=== PATIENT | male | born 1990 | race Caucasian/White ===

== ENCOUNTER 2023-12-19 10:29 | Outpatient (AMB) | payer BC, SELFPAY ==
--- NOTE | 2023-12-19 09:41 | A.OFFPC_ITS ---
Vital Signs 12/19/23 10:39 Height 5 ft 7.13 in Weight 167 lb 3 oz BMI 26.1 BP 102/70 Blood Pressure Location Rt brachial Position Sitting Respiration 14 Pulse 88 Pulse Source Pulse Oximeter Pulse Oximetry (%) 99 Oxygen Delivery Method Room Air Intake Visit Reasons: PANTRY STEWARD/STEWARDESS-PE request Intake Note: New patient visit Inside Sales Engineer Required: No Accompanied by: Spouse Allergies No Known Allergies Allergy (Verified 12/19/23 10:35) Medication List - Last Reconciled 12/19/23 by Deepika Sterling PA-C lisdexamfetamine 40 mg PO DAILY magnesium oxide 500 mg PO DAILY venlafaxine ER 225 mg PO DAILY Tobacco use date assessed: 12/19/23 Dental Screening Dental Screen Date: 12/19/23 Did you have a dental visit in the last 12 months?: Yes Did you have a dental problem in the last 6 months where you did not have access to dental care?: No Was dental information given to patient?: Patient has dentist HPI PANTRY STEWARD/STEWARDESS-PE request HPI Details Pt is a 33 y/o male who presents today to [facility] care. He is accompanied today by his significant other. He has a hx of ADD, depression, anxiety. He states he mostly made this appointment because he just wanted to have a PCP listed. He was last seen at [facility] a few years ago. Psych: Follows with growth therapy online and is on Vyvanse and venlafaxine. No SI/HI. Feeling well with this. Has a med prescriber. Derm: right foot plantar wart for the last month. Would like to see someone about removal of this. Has tried [id number] regimens without improvement.. 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 States that he is very active. [facility] Medical History (Updated 12/19/23 @ 11:04 by Deepika Sterling PA-C) Subacromial impingement of left shoulder Mass of right chest wall Hepatic steatosis Heartburn symptom Depression, major, recurrent, mild Decreased libido Chest wall contusion Low back pain Anxiety Allergic rhinitis ADHD (attention deficit hyperactivity disorder) Surgical History (Updated 12/19/23 @ 11:01 by Deepika Sterling PA-C) [place] teeth extracted History of arthroscopic procedure on shoulder H/O esophagogastroduodenoscopy Family History (Updated 12/19/23 @ 10:38 by Crystal Melloni, VERTICAL CONTOUR BAND SAW OPERATOR) Mother Depression Other FH: mental illness Social History Housing: House Patient Tobacco Use Status: Former Tobacco user Cigarette Packs Per Day: 0.5 Years Smoked: 2 e-Cigarette/Vaping Use: Former Use Second Hand Smoke Exposure: No service: No Current occupational status: employed Current occupation: [employer] Current occupational exposures/hazards: No Cognitive needs: No Hearing needs: No Vision needs: No Questionnaire Thrive Questionnaire Date Thrive assessed: 12/16/23 I am a: Patient What is your living situation today?: I have a steady place to live Within the past 12 months, did the food you bought not last and you didn't have the money to get more?: Never true Within the past 12 months, did you worry whether your food would run out before you got money to buy more?: Never true Do you have trouble paying for medicines?: No Do you have trouble getting transportation to medical appointments?: No Do you have trouble paying your heating and electricity bill?: No Do you have trouble taking care of your child, family member or friend?: No Do you have trouble with day-to-day activities such as bathing, preparing meals, shopping, managing finances, etc.?: No Are you currently unemployed and looking for a job?: No Are you interested in more education?: No Please select the resources that you would like help with: None Currently or been in a relationship where the following occur: No concerns reported THRIVE Score: 0 AUDIT C Alcohol Use Questionnaire (AUDIT-C) 1. How often do you have a drink containing alcohol?: 2-4 times a month 2. How many drinks containing alcohol do you have on a typical day when you are drinking?: 3 or 4 3. How often do you have six or more drinks on one occasion?: Monthly Total Score: 5 EMELY-7 AMB Questionnaire EMELY-7 Feeling nervous, anxious, or on edge: 1 = Several days Not being able to stop or control worryin = Not at all Worrying too much about different things: 1 = Several days Trouble relaxin = Several days Being so restless that it is hard to sit still: 1 = Several days Feeling afraid as if something awful might happen: 0 = Not at all Source: Developed by Drs. Foreign Harrell, Bernie Enrique, Jesús Anderson and colleagues, with an educational shahida from [employer]. Physical exam (Primary Care) Thrive Assessment: Date of Thrive Assessment Date Thrive assessed 12/16/23 12/19/23 09:44 Currently or been in a relationship where the following occur: No concerns reported Const Orientation/consciousness: patient oriented x3 HENMT Ears: hearing grossly normal bilaterally and TM's normal bilaterally General nose exam: No nasal polyps present Face and sinus: Yes sinuses nontender Mouth: Normal oral and palatal mucosa present Eyes Pupils: Equal, round and reactive pupils present EOM: EOMs intact bilaterally Neck Neck: Yes full ROM and Yes no lymphadenopathy Thyroid: Thyroid normal Chest Chest palpation & inspection: normal inspection of the chest Resp Auscultation: clear to auscultation bilaterally Cardio Rate: regular rate Rhythm: regular rhythm Heart sounds: S1 normal heart sound present and S2 normal heart sound present Peripheral pulses: Peripheral pulses 2+ throughout GI Other: Soft, nontender Auscultation: normal bowel sounds Rectal Exam - Male: Yes deferred General: Yes no CVA tenderness Back/Spine/Pelvis Other: Nontender Back: no CVA tenderness Skin General skin exam: no rashes or lesions noted Neuro General: patient oriented x3, gait normal, CN's II-XI intact bilaterally and deep tendon reflexes 2+ bilaterally Cranial nerves: Yes Equal, round and reactive pupils present Motor exam (neuro): 5/5 motor strength present throughout Sensory Exam: double simultaneous stimulation for sensation normal Coordination: [id number] test normal and Romberg test negative Extrem General: Yes normal to inspection and Yes full ROM Psych Affect: normal affect Attitude: cooperative Thought process: Normal thought process present Thought content: Normal thought content present Insight: Good insight present (Psych) Judgement: Good judgement present (Psych) Coding Level of Care Code Est Pt Prev Care 18-39y(87028) Diagnoses Routine general medical examination at a health care facility Z00.00 ADHD (attention deficit hyperactivity disorder) F90.9 Depression, major, recurrent, mild F33.0 Generalized anxiety disorder F41.1 Plantar wart of right foot B07.0 Assessment & Plan Assessment & Plan (1) Routine general medical examination at a health care facility: Code(s): Z00.00 - Encounter for general adult medical examination without abnormal findings Plan: Health maintenance reviewed. Labs ordered today. We will follow up pending test results. (2) ADHD (attention deficit hyperactivity disorder): Code(s): F90.9 - Attention-deficit hyperactivity disorder, unspecified type Category: Medical Plan: On Vyvanse. Appetite and mood stable. (3) Depression, major, recurrent, mild: Code(s): F33.0 - Major depressive disorder, recurrent, mild Category: Medical Plan: On Effexor and doing well. No SI/HI. (4) Generalized anxiety disorder: Code(s): F41.1 - Generalized anxiety disorder Category: Medical Plan: Continue with behavioral health. (5) Plantar wart of right foot: Code(s): B07.0 - Plantar wart Category: Medical Plan: Referral to [facility]. Orders: Orders Complete Blood Count Auto Diff Today F33.0 - Major depressive disorder, recurrent, mild, Z00.00 - Encounter for general adult medical examination without abnormal findings Lipid Panel Today F33.0 - Major depressive disorder, recurrent, mild, Z00.00 - Encounter for general adult medical examination without abnormal findings TSH reflex Free T4 Today F33.0 - Major depressive disorder, recurrent, mild, Z00.00 - Encounter for general adult medical examination without abnormal findings Vitamin B12 and Folate Today F33.0 - Major depressive disorder, recurrent, mild, Z00.00 - Encounter for general adult medical examination without abnormal findings Comprehensive Met. Panel Today F33.0 - Major depressive disorder, recurrent, mild, Z00.00 - Encounter for general adult medical examination without abnormal findings Referrals Dermatology Referral B07.0 - Plantar wart
[2023-12-19 10:39] VITALS: BP 102/70; PULSE 88; RESP 14; O2SAT 99; BMI 26.1
== END 2023-12-19 11:05 | disposition home or self-care (01) ==
PROVIDERS: PCP Family Medicine; Visit Provider Physician Assistant
DX: Z00.00 Encounter for general adult medical examination without abnormal findings (principal); F90.9 Attention-deficit hyperactivity disorder, unspecified type; F33.0 Major depressive disorder, recurrent, mild; F41.1 Generalized anxiety disorder; B07.0 Plantar wart

== ENCOUNTER → 2023-12-19 10:29 | Outpatient (BNVA) | payer BC, SELFPAY | PROVIDERS: PCP Family Medicine; Visit Provider Physician Assistant ==

== ENCOUNTER 2023-12-23 09:03 | Outpatient (REF) | payer BC, SELFPAY ==
[2023-12-23 11:11] LABS: MANUAL DIFF FLAG NO
[2023-12-23 11:31] LABS: Basophils Percent Auto 0.7 % (0-2); Eosinophils Absolute Auto 0.1 X10*3/uL (0.0-0.4); Eosinophils Percent Auto 1.8 % (0-4); Hematocrit 45.1 % (42.0-52.0); Hemoglobin 14.8 g/dl (14.0-18.0); Imm Gran Abs Auto 0.01 X10*3/uL (0.00-0.03); Imm Gran Pct Auto 0.2 % (0.0-0.4); Lymphocytes Absolute Auto 1.2 X10*3/uL (1.2-4.9); Lymphocytes Percent Auto 27.7 % (20-40); Mean Corpuscular HGB Conc 32.8 g/dl (31.0-36.0); Mean Corpuscular Hemoglobin 29.4 pg (27.0-33.0); Mean Corpuscular Volume 89.5 fL (80.0-98.0); Mean Platelet Volume 10.9 fL (9.4-12.4); Monocytes Absolute Auto 0.4 X10*3/uL (0.1-1.2); Monocytes Percent Auto 9.2 % (2-11); Neutrophils Absolute Auto 2.7 x10*3/uL (2.0-8.3); Neutrophils Percent Auto 60.4 % (45-73); Platelet Count 222 X10*3/uL (160-400); Red Blood Count 5.04 X10*6/uL (4.60-5.80); Red Cell Distribution Width 12.4 % (11.0-16.0); White Blood Count 4.5 X10*3/uL (4.8-10.8)
[2023-12-23 11:59] LABS: Alanine Aminotransferase 31 U/L (0-40); Albumin Level 4.6 g/dL (3.5-5.0); Alkaline Phosphatase 64 U/L (39-117); Anion Gap 10 (12-20); Aspartate Amino Transferase 31 U/L (5-37); Bilirubin Total 0.6 mg/dL (0.0-1.0); Blood Urea Nitrogen 12 mg/dL (9-16); Calcium 9.9 mg/dL (8.4-10.2); Carbon Dioxide 30 mmol/L (22-29); Chloride 102 mmol/L (96-108); Cholesterol 184 mg/dL (<200); Estimated Glomerular Filt Rate > 60; Glucose Random 102 mg/dL (60-115); HDL Cholesterol 47 mg/dL (>40); LDL Cholesterol Calculated 118 mg/dL (<100); Potassium 4.2 mmol/L (3.3-5.1); Sodium 138 mmol/L (135-145); Total Protein 7.4 g/dL (6.5-8.0); Triglycerides 95 mg/dL (<150)
[2023-12-23 12:02] LABS: TSH reflex Free T4 0.62 uIU/mL (0.32-4.0)
[2023-12-23 12:34] LABS: Folate 13.9 ng/mL (> or = 4.0); Vitamin B12 667 pg/mL (200-900)
== END 2023-12-23 09:04 | disposition home or self-care (01) ==
LOC: HO.WFDLDS 09:03
PROVIDERS: Visit Provider Physician Assistant
DX: Z00.00 Encounter for general adult medical examination without abnormal findings (principal); F33.0 Major depressive disorder, recurrent, mild
CPT/HCPCS: 36415; 80053; 80061; 82607; 82746; 84443; 85025

== ENCOUNTER 2024-06-25 15:19 | Outpatient (AMB) | payer BC, SELFPAY ==
--- NOTE | 2024-06-25 15:24 | MHC.PC.OV ---
Vital Signs 06/25/24 15:26 Height 5 ft 7.13 in Weight 174 lb 6 oz BMI 27.2 BP 100/74 Blood Pressure Location Lt brachial Position Sitting Respiration 14 Pulse 95 Pulse Source Pulse Oximeter Temp 98.7 F Temp Source Oral Pulse Oximetry (%) 97 Oxygen Delivery Method Room Air Intake Visit Reasons: Weakness , tired Intake Note: Weakness and fatigue. Started over the winter. Requesting work note to return on 06/27/2024. Province Archivist Required: No Allergies No Known Allergies Allergy (Verified 06/25/24 15:25) Medication List - Last Reconciled 06/25/24 by Deepika Sterling PA-C lisdexamfetamine 40 mg PO DAILY magnesium oxide 500 mg PO DAILY venlafaxine ER 225 mg PO DAILY Tobacco use date assessed: 06/25/24 Dental Screening Dental Screen Date: 12/19/23 HPI Weakness , tired HPI Details Pt is a 33 y/o male who presents today with concerns of feeling tired. He has a hx of ADD, depression, anxiety. He states he started feeling tired for the last few months. They do have a 3-month-old at home but does not necessarily think it is related. He just returned to work and states that it has been a hard adjustment. He works 3rd shift and states that if he does not take his Vyvanse it was hard to stay focused. He does notice that he is a little bit more short fused without the venlafaxine. He does have a psychiatrist. He states that the fatigue feels more than just winter changes or depression. He denies any swelling in the neck, decreased appetite, abdominal pain, blood in the stool or urine, weight changes. No night sweats, fevers or chills. No recent illness. States he is able to get a full night's sleep but then still feels tired. Psych: Follows with growth therapy online and is on Vyvanse and venlafaxine. No SI/HI. Feeling well with this. Has a med prescriber. 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 [facility] Medical History (Updated 06/25/24 @ 15:38 by Deepika Sterling PA-C) Subacromial impingement of left shoulder Mass of right chest wall Hepatic steatosis Heartburn symptom Depression, major, recurrent, mild Decreased libido Chest wall contusion Low back pain Anxiety Allergic rhinitis ADHD (attention deficit hyperactivity disorder) Surgical History (Updated 12/19/23 @ 11:01 by Deepika Sterling PA-C) [place] teeth extracted History of arthroscopic procedure on shoulder H/O esophagogastroduodenoscopy Family History (Updated 12/19/23 @ 10:38 by Hortencia Shah CMA) Mother Depression Other FH: mental illness Social History (Updated 12/19/23 @ 10:37 by Hortencia Shah CMA) Housing: House Patient Tobacco Use Status: Former Tobacco user Cigarette Packs Per Day: 0.5 Years Smoked: 2 e-Cigarette/Vaping Use: Former Use Second Hand Smoke Exposure: No service: No Current occupational status: employed Current occupation: [employer] Current occupational exposures/hazards: No Cognitive needs: No Hearing needs: No Vision needs: No Questionnaire PHQ-9 Over the last 2 weeks, how often have you been bothered by any of the following problems? 1. Little interest or pleasure in doing things: several days 2. Feeling down, depressed, or hopeless: several days 3. Trouble falling or staying asleep, or sleeping too much: not at all 4. Feeling tired or having little energy: nearly every day 5. Poor appetite or overeating: not at all 6. Feeling bad about yourself - or that you are a failure or have let yourself or your family down: not at all 7. Trouble concentrating on things, such as reading the newspaper or watching television: not at all 8. Moving or speaking so slowly that other people could have noticed. Or the opposite - being so fidgety or restless that you have been moving around a lot more than usual: not at all 9. Thoughts that you would be better off or of hurting yourself in some way: not at all Total score: 5 Depression Screening Interpretation: Positive Depression Screening Follow-up: Existing condition, In treatment and Community Mental Health Worker F/U Depression Screening Done: Yes 23986 - PHQ-9 Billing: Yes Source: Developed by Drs. Foreign Harrell, Bernie Enrique, Jesús Anderson and colleagues, with an educational shahida from [employer] Thrive Questionnaire Date Thrive assessed: 12/16/23 I am a: Patient What is your living situation today?: I have a steady place to live Within the past 12 months, did the food you bought not last and you didn't have the money to get more?: Never true Within the past 12 months, did you worry whether your food would run out before you got money to buy more?: Sometimes True Do you have trouble paying for medicines?: No Do you have trouble getting transportation to medical appointments?: No Do you have trouble paying your heating and electricity bill?: No Do you have trouble taking care of your child, family member or friend?: No Do you have trouble with day-to-day activities such as bathing, preparing meals, shopping, managing finances, etc.?: No Are you currently unemployed and looking for a job?: No Are you interested in more education?: No Please select the resources that you would like help with: None Currently or been in a relationship where the following occur: No concerns reported THRIVE Score: 1 AUDIT C Alcohol Use Questionnaire (AUDIT-C) 1. How often do you have a drink containing alcohol?: 2-4 times a month 2. How many drinks containing alcohol do you have on a typical day when you are drinking?: 3 or 4 3. How often do you have six or more drinks on one occasion?: Less than monthly Total Score: 4 EMELY-7 AMB Questionnaire EMELY-7 Feeling nervous, anxious, or on edge: 1 = Several days Not being able to stop or control worryin = Several days Worrying too much about different things: 1 = Several days Trouble relaxin = Several days Being so restless that it is hard to sit still: 1 = Several days Becoming easily annoyed or irritable: 1 = Several days Feeling afraid as if something awful might happen: 0 = Not at all Total EMELY-7 score (0-4 normal; 5-9 mild; 10-14 moderate; 15-21 severe): 6 Source: Developed by Drs. Foreign Harrell, Bernie Enrique, Jesús Anderson and colleagues, with an educational shahida from [employer]). EMELY-7 Assessment Billing EMELY-7 Assessment Tool: EMELY-7 Assessment 08419 Physical exam (Primary Care) Vital Signs: Last Vital Signs Temp 98.7 F 06/25/24 15:26 Pulse 95 06/25/24 15:26 Resp 14 06/25/24 15:26 BP 100/74 06/25/24 15:26 Pulse Ox 97 06/25/24 15:26 Oxygen Delivery Method Room Air 06/25/24 15:26 BMI result Body Mass Index 27.2 Tobacco/Smoking Status: Tobacco use Status Tobacco use date assessed 06/25/24 06/25/24 15:29 Patient Tobacco Use Status Former Tobacco user 06/25/24 15:29 e-Cigarette/Vaping Use Former Use 06/25/24 15:29 PHQ-9: PHQ-9 Score PHQ-9: Total score 5 06/25/24 15:29 Depression Screening Interpretation: Positive Depression Screening Follow-up: Existing condition, In treatment and Community Mental Health Worker F/U Thrive Assessment: Date of Thrive Assessment Date Thrive assessed 12/16/23 06/25/24 15:29 Currently or been in a relationship where the following occur: No concerns reported Const Orientation/consciousness: patient oriented x3 HENMT Ears: hearing grossly normal bilaterally Neck Thyroid: Thyroid normal Lymphatic: no lymphadenopathy noted Resp Auscultation: clear to auscultation bilaterally Cardio Rate: regular rate Rhythm: regular rhythm Heart sounds: S1 normal heart sound present and S2 normal heart sound present GI Inspection: Yes normal to inspection Palpation (GI): Soft to palpation and Other GI palpation findings present (nontender, no cva tenderness) Auscultation: normoactive bowel sounds Rectal Exam - Male: Yes deferred Skin General skin exam: no rashes or lesions noted Neuro General: patient oriented x3, gait normal and no focal motor deficits Coding Level of Care Code Est Pt Level 4 (30621) Complex EM visit Add On G2211 Diagnoses ADHD (attention deficit hyperactivity disorder) F90.9 Depression, major, recurrent, mild F33.0 Fatigue R53.83 Additional Codes PHQ-9 - 85457 - PHQ-9 Billing: Yes ([id number]) EMELY-7 Assessment Billing - EMELY-7 Assessment Tool: EMELY-7 Assessment 63963 ([id number]) Assessment & Plan Assessment & Plan (1) ADHD (attention deficit hyperactivity disorder): Code(s): F90.9 - Attention-deficit hyperactivity disorder, unspecified type Category: Medical Plan: Following with a med prescriber (2) Depression, major, recurrent, mild: Code(s): F33.0 - Major depressive disorder, recurrent, mild Category: Medical Plan: As above. No SI/HI. States doing well with the . (3) Fatigue: Code(s): R53.83 - Other fatigue Category: Medical Plan: Labs ordered today. We will follow up pending test results. Advised patient to also reach out to med prescriber to see if there should be a med adjustment. If still symptomatic discussed doing a follow up and possible sleep study. Patient will let me know. He will also let me know if anything changes. Patient understands and agrees with the plan. Orders: Orders Comprehensive Ora. Panel Fast Today F33.0 - Major depressive disorder, recurrent, mild, F41.1 - Generalized anxiety disorder, F90.9 - Attention-deficit hyperactivity disorder, unspecified type, R53.83 - Other fatigue IRON PROFILE Today F33.0 - Major depressive disorder, recurrent, mild, F41.1 - Generalized anxiety disorder, F90.9 - Attention-deficit hyperactivity disorder, unspecified type, R53.83 - Other fatigue TSH reflex Free T4 Today F33.0 - Major depressive disorder, recurrent, mild, F41.1 - Generalized anxiety disorder, F90.9 - Attention-deficit hyperactivity disorder, unspecified type, R53.83 - Other fatigue Vitamin D 25-OH Total Today F33.0 - Major depressive disorder, recurrent, mild, F41.1 - Generalized anxiety disorder, F90.9 - Attention-deficit hyperactivity disorder, unspecified type, R53.83 - Other fatigue Complete Blood Count Auto Diff Today F33.0 - Major depressive disorder, recurrent, mild, F41.1 - Generalized anxiety disorder, F90.9 - Attention-deficit hyperactivity disorder, unspecified type, R53.83 - Other fatigue Vitamin B12 and Folate Today F33.0 - Major depressive disorder, recurrent, mild, F41.1 - Generalized anxiety disorder, F90.9 - Attention-deficit hyperactivity disorder, unspecified type, R53.83 - Other fatigue
[2024-06-25 15:26] VITALS: BP 100/74; PULSE 95; RESP 14; TEMP 37.1; O2SAT 97; BMI 27.2
--- OUTSIDE RECORDS SUMMARY | 2024-06-25 17:42 | XMS_ITS | Clinical Summary ---
Author Organization [facility] ity Address [address] [place] [address] Care Team Providers Care Revenue Enforcement Agent Name Role Phone Unavailable Primary Care Provider Unavailabl e Social History Tobacco Use Types Packs/Day Years Used Date Smoking Tobacco: Never Assessed Sex and Gender Information Value Date Recorded Sex Assigned at Not on file Legal Sex Male 1:38 AM EST Gender Identity Not on file Sexual Orientation Not on file Plan of Treatment Health Maintenance Due Date Last Done Comments DTaP,Tdap,and Td Vaccines (1 - Tdap) 2008 Hepatitis B Vaccines (1 of 3 - 19+ 3-dose series) 2008 COVID-19 Vaccine ( - 2023-2 5 season) 2023 Influenza Vaccine (Season Ended) 2024 HIB Vaccines Aged Out No longer eligi ble based on patient's age to complete this topic HPV Vaccines Aged Out No longer eligi ble based on patient's age to complete this topic Hepatitis A Vaccines Aged Out No long er eligible based on patient's age to complete this topic IPV Vaccines Aged Out No longer eligi ble based on patient's age to complete this topic MMR Vaccines Aged Out No longer eligi ble based on patient's age to complete this topic Meningococcal ACWY Vaccine Aged Out N o longer eligible based on patient's age to complete this topic Meningococcal B Vaccine Aged Out No l onger eligible based on patient's age to complete this topic Pneumococcal Vaccine: Pediat rics (0 to 5 Years) and At-Risk Patients (6 to 64 Years) Aged Out No longer eligible b ased on patient's age to complete this topic RSV Immunization Patients Un amparo 20 months Aged Out No longer eligible b ased on patient's age to complete this topic Varicella Vaccines Aged Out No longer eligible based on patient's age to complete this topic
== END 2024-06-25 15:50 | disposition home or self-care (01) ==
LOC: HO.HMCFM 15:20
PROVIDERS: PCP Family Medicine; Visit Provider Physician Assistant
DX: F90.9 Attention-deficit hyperactivity disorder, unspecified type (principal); F33.0 Major depressive disorder, recurrent, mild; R53.83 Other fatigue

== ENCOUNTER → 2024-06-25 15:19 | Outpatient (BNVA) | payer BC, SELFPAY | PROVIDERS: PCP Family Medicine; Visit Provider Physician Assistant | DX: F90.9 Attention-deficit hyperactivity disorder, unspecified type (principal); F33.0 Major depressive disorder, recurrent, mild; R53.83 Other fatigue; F41.9 Anxiety disorder, unspecified | CPT/HCPCS: 96127 ==

== ENCOUNTER 2024-06-26 10:09 | Outpatient (REF) | payer BC, SELFPAY ==
--- OUTSIDE RECORDS SUMMARY | 2024-06-26 10:52 | XMS_ITS | Clinical Summary ---
Author Organization [facility] ity Address [address] [place] [address] Care Team Providers Care Utility Bill Collector Name Role Phone Unavailable Primary Care Provider [...]
[2024-06-26 11:38] LABS: MANUAL DIFF FLAG NO
[2024-06-26 11:40] LABS: Basophils Percent Auto 0.6 % (0-2); Eosinophils Absolute Auto 0.1 X10*3/uL (0.0-0.4); Eosinophils Percent Auto 1.3 % (0-4); Hematocrit 43.4 % (42.0-52.0); Hemoglobin 14.7 g/dl (14.0-18.0); Imm Gran Abs Auto 0.01 X10*3/uL (0.00-0.03); Imm Gran Pct Auto 0.2 % (0.0-0.4); Lymphocytes Absolute Auto 1.5 X10*3/uL (1.2-4.9); Lymphocytes Percent Auto 32.3 % (20-40); Mean Corpuscular HGB Conc 33.9 g/dl (31.0-36.0); Mean Corpuscular Hemoglobin 30.2 pg (27.0-33.0); Mean Corpuscular Volume 89.3 fL (80.0-98.0); Mean Platelet Volume 10.5 fL (9.4-12.4); Monocytes Absolute Auto 0.4 X10*3/uL (0.1-1.2); Monocytes Percent Auto 8.6 % (2-11); Neutrophils Absolute Auto 2.7 x10*3/uL (2.0-8.3); Platelet Count 231 X10*3/uL (160-400); Red Blood Count 4.86 X10*6/uL (4.60-5.80); Red Cell Distribution Width 12.5 % (11.0-16.0); White Blood Count 4.7 X10*3/uL (4.8-10.8)
[2024-06-26 12:07] LABS: Alanine Aminotransferase 37 U/L (0-40); Albumin Level 4.5 g/dL (3.5-5.0); Alkaline Phosphatase 62 U/L (39-117); Anion Gap 10 (12-20); Aspartate Amino Transferase 38 U/L (5-37); Bilirubin Total 0.4 mg/dL (0.0-1.0); Blood Urea Nitrogen 15 mg/dL (9-16); Calcium 9.4 mg/dL (8.4-10.2); Carbon Dioxide 31 mmol/L (22-29); Chloride 104 mmol/L (96-108); Estimated Glomerular Filt Rate > 60; Glucose Fasting 82 mg/dL (60-99); Iron 77 mcg/dL (45-160); Percent Iron Saturation 24 % (15-50); Potassium 4.5 mmol/L (3.3-5.1); Sodium 140 mmol/L (135-145); Total Iron Binding Capacity 315 mcg/dL (228-428); Total Protein 7.1 g/dL (6.5-8.0); Unsaturated Iron Binding 238 ug/dL
[2024-06-26 12:18] LABS: Vitamin D 25-OH Total 26.9 ng/mL (>30)
[2024-06-26 12:31] LABS: Folate 13.3 ng/mL (> or = 4.0); Vitamin B12 650 pg/mL (200-900)
[2024-06-26 13:02] LABS: Free T4 (Free Thyroxine) 0.98 ng/dL (0.71-1.85)
== END 2024-06-26 10:10 | disposition home or self-care (01) ==
LOC: HO.WFDLDS 10:09
PROVIDERS: Visit Provider Physician Assistant
DX: F90.9 Attention-deficit hyperactivity disorder, unspecified type (principal); F33.0 Major depressive disorder, recurrent, mild; R53.83 Other fatigue; F41.1 Generalized anxiety disorder
CPT/HCPCS: 36415; 80053; 82306; 82607; 82746; 83540; 84439; 84443; 85025

== ENCOUNTER 2024-08-13 13:45 | Outpatient (AMB) | payer BC, SELFPAY ==
--- NOTE | 2024-08-13 13:50 | A.OFFPC_ITS ---
Vital Signs 08/13/24 13:53 Height 5 ft 7.13 in Weight 166 lb 6 oz BMI 26.0 BP 122/72 Blood Pressure Location Lt brachial Position Sitting Respiration 14 Pulse 90 Pulse Source Pulse Oximeter Pulse Oximetry (%) 97 Oxygen Delivery Method Room Air Intake Visit Reasons: L knee pain Intake Note: Left knee pain, fell yesterday tripping on the dog Neuropsychology Division Chief Required: No Allergies No Known Allergies Allergy (Verified 06/25/24 15:25) Medication List - Last Reconciled 08/13/24 by Deepika Sterling PA-C cholecalciferol (vitamin D3) 25 mcg PO DAILY lisdexamfetamine 40 mg PO DAILY magnesium oxide 500 mg PO DAILY venlafaxine ER 225 mg PO DAILY Tobacco use date assessed: 08/13/24 Dental Screening Dental Screen Date: 08/13/24 Did you have a dental visit in the last 12 months?: Yes Did you have a dental problem in the last 6 months where you did not have access to dental care?: No Was dental information given to patient?: Patient has dentist HPI L knee pain HPI Details Patient is a 33-year-old male who presents today with complaints of left knee pain. He states that yesterday he was holding his 4-month-old when he tripped over his dog. He states that he did not realize his dog was directly under his feet and he tried to catch himself from falling while holding onto the baby. He states that he twisted and landed on the left knee and hip. His hip is a little sore but he states overall not painful. Most of his discomfort is on the lateral aspect of the left knee. He states that it does hurt to weight bear. He does feel like it is a little unstable but he has not really tried walking much. He reports some bruising and swelling of the knee. He has been trying to rest the knee. He does do a lot of walking, lifting and jogging for his job. Was seen recently for fatigue and we did discuss that his LFTs and thyroid tests were a little off. Reminded him to complete labs. [facility] Medical History (Updated 08/13/24 @ 14:27 by Deepika Sterling PA-C) Subacromial impingement of left shoulder Mass of right chest wall Hepatic steatosis Heartburn symptom Depression, major, recurrent, mild Decreased libido Chest wall contusion Low back pain Anxiety Allergic rhinitis ADHD (attention deficit hyperactivity disorder) Surgical History (Updated 12/19/23 @ 11:01 by Deepika Sterling PA-C) [place] teeth extracted History of arthroscopic procedure on shoulder H/O esophagogastroduodenoscopy Family History (Updated 12/19/23 @ 10:38 by Hortencia Shah CMA) Mother Depression Other FH: mental illness Social History (Updated 12/19/23 @ 10:37 by Hortencia Shah CMA) Housing: House Patient Tobacco Use Status: Former Tobacco user Cigarette Packs Per Day: 0.5 Years Smoked: 2 Packs Per Year: 1 e-Cigarette/Vaping Use: Former Use Second Hand Smoke Exposure: No service: No Current occupational status: employed Current occupation: [employer] Current occupational exposures/hazards: No Cognitive needs: No Hearing needs: No Vision needs: No Questionnaire Thrive Questionnaire Date Thrive assessed: 06/25/24 I am a: Patient What is your living situation today?: I have a steady place to live Within the past 12 months, did the food you bought not last and you didn't have the money to get more?: Never true Within the past 12 months, did you worry whether your food would run out before you got money to buy more?: Sometimes True Do you have trouble paying for medicines?: No Do you have trouble getting transportation to medical appointments?: No Do you have trouble paying your heating and electricity bill?: No Do you have trouble taking care of your child, family member or friend?: No Do you have trouble with day-to-day activities such as bathing, preparing meals, shopping, managing finances, etc.?: No Are you currently unemployed and looking for a job?: No Are you interested in more education?: No Please select the resources that you would like help with: None Currently or been in a relationship where the following occur: No concerns reported THRIVE Score: 1 AUDIT C Alcohol Use Questionnaire (AUDIT-C) 1. How often do you have a drink containing alcohol?: 2-4 times a month 2. How many drinks containing alcohol do you have on a typical day when you are drinking?: 1 or 2 3. How often do you have six or more drinks on one occasion?: Never Total Score: 2 Physical exam (Primary Care) Vital Signs: Last Vital Signs Pulse 90 08/13/24 13:53 Resp 14 08/13/24 13:53 BP 122/72 08/13/24 13:53 Pulse Ox 97 08/13/24 13:53 Oxygen Delivery Method Room Air 08/13/24 13:53 BMI result Body Mass Index 26.0 Tobacco/Smoking Status: Tobacco use Status Tobacco use date assessed 08/13/24 08/13/24 13:56 Patient Tobacco Use Status Former Tobacco user 08/13/24 13:56 e-Cigarette/Vaping Use Former Use 08/13/24 13:56 Thrive Assessment: Date of Thrive Assessment Date Thrive assessed 06/25/24 08/13/24 13:56 Currently or been in a relationship where the following occur: No concerns reported Const Orientation/consciousness: patient oriented x3 HENMT Ears: hearing grossly normal bilaterally Neck Thyroid: Thyroid normal Lymphatic: no lymphadenopathy noted Resp Auscultation: clear to auscultation bilaterally Cardio Rate: regular rate Rhythm: regular rhythm Heart sounds: S1 normal heart sound present and S2 normal heart sound present GI Inspection: Yes normal to inspection Palpation (GI): Soft to palpation and Other GI palpation findings present (nontender, no cva tenderness) Auscultation: normoactive bowel sounds Rectal Exam - Male: Yes deferred Neuro General: patient oriented x3, gait normal and no focal motor deficits Extrem Other: Full range of motion at the knee. There is soft tissue swelling noted over the lateral aspect of the left knee. Slight ecchymosis is also noted. Complete ext ension of the knee elicits pain. No discomfort with flexion. Valgus and varus stress elicits pain. Negative anterior and posterior drawer test. There is tenderness over the lateral aspect of the knee. Otherwise, nontender. Coding Level of Care Code Est Pt Level 4 (61307) Complex EM visit Add On G2211 Diagnoses Right knee pain M25.561 Low TSH level R79.89 Elevated LFTs R79.89 Assessment & Plan Assessment & Plan (1) Right knee pain: Code(s): M25.561 - Pain in right knee Category: Medical Plan: Referral to ortho X-ray ordered Encouraged rest, ice, compression and elevation. We will trial naproxen. Discussed risks and benefits and adverse effects of this medication. Work note provided. Follow up if no improvement or if anything worsens or changes. (2) Low TSH level: Code(s): R79.89 - Other specified abnormal findings of blood chemistry Plan: repeat lab (3) Elevated LFTs: Code(s): R79.89 - Other specified abnormal findings of blood chemistry Plan: as above advised to complete today Orders: Orders XR knee LT 2V Today M25.561 - Pain in right knee, M25.562 - Pain in left knee Referrals Orthopedics Referral M25.561 - Pain in right knee, W19.XXXA - Unspecified fall, initial encounter, Y92.009 - Unspecified place in unspecified non- institutional (private) residence as the place of occurrence of the external cau se Medications: New naproxen 500 mg PO BID 14 tabs 0RF
[2024-08-13 13:53] VITALS: BP 122/72; PULSE 90; RESP 14; O2SAT 97; BMI 26.0
--- OUTSIDE RECORDS SUMMARY | 2024-08-13 13:54 | XMS_ITS | Clinical Summary ---
Author Organization [facility] ity Address [address] [place] [id number] Care Team Providers Care Communication Spec Name Role Phone Unavailable Primary Care Provider [...]
== END 2024-08-13 14:31 | disposition home or self-care (01) ==
LOC: HO.HMCFM 13:46
PROVIDERS: PCP Physician Assistant; Visit Provider Physician Assistant
DX: M25.561 Pain in right knee (principal); R79.89 Other specified abnormal findings of blood chemistry

== ENCOUNTER → 2024-08-13 13:45 | Outpatient (BNVA) | payer BC, SELFPAY | PROVIDERS: PCP Physician Assistant; Visit Provider Physician Assistant | DX: Z13.89 Encounter for screening for other disorder (principal) ==